=== PATIENT | female | born 1965 | race Caucasian/White ===

== ENCOUNTER 2018-12-19 08:21 | Emergency (ER) | payer OTHER ==
[2018-12-19] MEDS ORDERED: KETOROLAC TROMETHAMINE INJ 30 MG/ML VIAL IM ONE (08:52)
[2018-12-19] MEDS ORDERED: ORPHENADRINE CITRATE 30 MG/ML AMP IM ONE (08:52)
--- NOTE | 2018-12-19 08:53 | ED.PDOC ---
History of Present Illness - General Chief Complaint: Back Pain or Injury Stated Complaint: Low back pain, nausea Time Seen by Provider: 12/19/18 08:32 Source: patient Exam Limitations: no limitations - History of Present Illness Initial Comments: Sara Jones 53 y/o female stated that she had Dull back pain intermittent for the last 6 days getting worse and constant starting yesterday with radiation to left leg.Denies history of trauma.No bladder or bowel dysfunction,No weakness,no numbness,no fever,or weight loss.Stated aggravated by standing from lying position. Timing/Duration: days - 6 Quality/Severity: dullness, radiation Back Pain Location: other - left leg Method of Injury/Prior Injury: other - NO INJURIES TO BACK Improving Factors: rest Worsening Factors: movement Associated Symptoms: muscle spasms Allergies/Adverse Reactions: Allergies Codeine Allergy (Verified 12/19/18 08:49) Home Medications: Ambulatory Orders Acetaminophen W/ Codeine [Tylenol/Codeine #4 300-60 mg] 1 ea PO TID PRN #14 tab 12/19/18 Carisoprodol [Soma] 250 mg PO TID PRN #14 tab 12/19/18 Review of Systems - Review of Systems Musculoskeletal: States: see HPI, back pain All other Systems: Reviewed and Negative, No Change from Baseline Past Medical History (General) - Patient Medical History Hx Stroke: No Hx of COPD: Yes Hx Congestive Heart Failure: No Hx Hypertension: Yes Hx Diabetes: No Hx Cancer: No Surgical History: appendectomy, tonsillectomy, Hysterectomy, other - hysterectomy - Vaccination History Hx Influenza Vaccination: Yes Hx Pneumococcal Vaccination: No - Social History Hx Tobacco Use: Yes Hx Alcohol Use: Yes Hx Substance Use: No Hx Substance Use Treatment: No Hx Depression: No Hx Physical Abuse: No Hx Emotional Abuse: No Hx Suspected Abuse: No - Female History Patient is a Female of Child Bearing Age (10 -59 yrs old): Yes Patient : No - Hyst Family Medical History - Family History Mother Living Status: Hx Family Cancer: Yes - Breast-mom and sister;Colon- dad Father Living Status: Hx Family Cancer: Yes - Colon Physical Exam - Physical Exam General Appearance: Alert, Comfortable, No apparent distress Eyes, Ears, Nose, Throat Exam: normal ENT inspection Neck Exam: normal alignment, normal inspection Cardiovascular/Respiratory: regular rate, rhythm, no M/R/G, normal peripheral pulses Peripheral Pulses: radial,right: 2+, radial,left: 2+ Gastrointestinal/Abdominal: non tender, soft Back Exam: no CVA tenderness, no vertebral tenderness, muscle spasm Extremity Exam: non-tender, no pedal edema Neurologic: alert, oriented x 3, other - DTR 2 + bilaterally patellar;Positive SLR-35 o left leg Progress - Progress Progress: 12/19/18 09:00 Vital Signs - 24 hr 12/19/18 08:30 Temperature 97.1 F L Pulse Rate [L 71 finger] Respiratory 18 Rate Blood Pressure 160/83 [L arm] O2 Sat by Pulse 99 Oximetry - Results/Orders Results/Orders: 12/19/18 08:52 Lumbar Spine 5 Views [RAD] Stat Laboratory Results - last 24 hr 12/19/18 08:55 Urine Color Yellow Urine Appearance Clear Urine pH 6.5 Ur Specific [place] 1.010 Urine Protein Negative Urine Glucose (UA) Negative Urine Ketones Negative Urine Blood Negative Urine Nitrite Negative Urine Bilirubin Negative Urine Urobilinogen 0.2 Ur Leukocyte Esterase Negative Urine RBC 0 Urine WBC 0 Ur Epithelial Cells 1-3 Urine Bacteria 0 - EKG/XRAY/CT XRAY: lumbar spine degenerative disc disease Departure - Departure Clinical Impression: Muscle spasm of back Low back pain Qualifiers: Chronicity: unspecified Back pain laterality: midline Sciatica presence: with sciatica Sciatica laterality: sciatica of left side Qualified Code(s): M54.42 - Lumbago with sciatica, left side Time of Disposition: 09:54 Disposition: Discharge to Home or Self Care Condition: Fair Departure Forms: ED Discharge - Pt. Copy, Patient Portal Self Enrollment Instructions: DI for Low Back Pain, DI for Back Spasm, Degenerative Disc Disease, Osteoarthritis (DC) Prescriptions: Acetaminophen W/ Codeine [Tylenol/Codeine #4 300-60 mg] 1 ea PO TID PRN #14 tab PRN Reason: Pain Carisoprodol [Soma] 250 mg PO TID PRN #14 tab PRN Reason: Muscle Spasms Home Medications: Ambulatory Orders Acetaminophen W/ Codeine [Tylenol/Codeine #4 300-60 mg] 1 ea PO TID PRN #14 tab 12/19/18 Carisoprodol [Soma] 250 mg PO TID PRN #14 tab 12/19/18 Additional Instructions: Need to sign up with primary Md LIBRADO [phone];Return to ER as needed
--- NOTE | 2018-12-19 09:47 | RAD ---
Findings: Number of images: Five Location: Lumbar spine Five lumbar type vertebral bodies with transitional features of the left L5 vertebral body. Soft tissues are unremarkable. No acute fracture or subluxation. Vertebral body heights are maintained. Atherosclerotic plaque incidentally noted within the abdominal aorta. L4/L5: Disc space narrowing with endplate degenerative change and marginal osteophytes. Facet hypertrophy is also present. IMPRESSION: Degenerative disc disease at L4/L5. No acute fracture or subluxation. Electronically signed by: Kyree Gibbs MD 12/19/2018 9:45 AM CDT
[2018-12-19 10:19] VITALS: BP 177/95; TEMP 95.7; O2SAT 95
== END 2018-12-19 10:19 | disposition home or self-care (01) ==
LOC: ER 08:21
DX: M54.42 Lumbago with sciatica, left side (principal); M62.830 Muscle spasm of back; M51.36 Other intervertebral disc degeneration, lumbar region; J44.9 Chronic obstructive pulmonary disease, unspecified; I10 Essential (primary) hypertension; Z87.891 Personal history of nicotine dependence; Z88.5 Allergy status to narcotic agent
CPT/HCPCS: 72114; 81001; J1885; J2360

== ENCOUNTER 2019-04-12 16:06 | Emergency (ER) | payer MEDICAID, OTHER ==
[2019-04-12] MEDS ORDERED: KETOROLAC TROMETHAMINE INJ 60 MG/2 ML VIAL IM ONE (16:18)
[2019-04-12] MEDS ORDERED: DEXAMETHASONE INJ 4 MG/ML VIAL IM ONE (16:18)
--- NOTE | 2019-04-12 16:23 | ED.PDOC ---
History of Present Illness - General Time Seen by Provider: 04/12/19 16:07 Source: patient - History of Present Illness Initial Comments: 53 yo female with PMH of lumbar DDD who presents with cc of acute low back pain. Onset 2:30 am today, woke her up from sleeping, constant, sharp, 10/10 severity, largely unchanged since onset, occasional sharp/electric shooting pains down right leg, worse with lying flat, bending, walking, ROM of L-spine, no meds tried for relief. Denies any acute injuries, weakness, numbness, urinary sx's. No PCP, states they are from [place]. Pt seen here 12/2018 also for low back pain and sciatic sx's down left leg. XR L-spine revealed DDD, angelica at L4-L5 level. Allergies/Adverse Reactions: Allergies Codeine Allergy (Verified 12/19/18 08:49) Home Medications: Ambulatory Orders Acetaminophen W/ Codeine [Tylenol/Codeine #4 300-60 mg] 1 ea PO TID PRN #14 tab 12/19/18 Carisoprodol [Soma] 250 mg PO TID PRN #14 tab 12/19/18 Tramadol HCl 50 mg PO Q6H PRN 10 Days #10 tab 04/12/19 predniSONE 60 mg PO DAILY 5 Days #15 tab 04/12/19 Review of Systems - Review of Systems Review of Systems: 04/12/19 16:23 as per HPI All other Systems: Reviewed and Negative Past Medical History (General) - Patient Medical History Hx Stroke: No Hx of COPD: Yes Hx Congestive Heart Failure: No Hx Hypertension: Yes Hx Diabetes: No Hx Cancer: No - Vaccination History Hx Influenza Vaccination: Yes Hx Pneumococcal Vaccination: No - Social History Hx Tobacco Use: Yes Hx Alcohol Use: Yes Hx Substance Use: No Hx Substance Use Treatment: No Hx Depression: No Hx Physical Abuse: No Hx Emotional Abuse: No Hx Suspected Abuse: No - Female History Patient : No - Hyst Family Medical History - Family History Mother Living Status: Hx Family Cancer: Yes - Breast-mom and sister;Colon- dad Father Living Status: Hx Family Cancer: Yes - Colon Physical Exam - Physical Exam General Appearance: Alert, No apparent distress Eyes, Ears, Nose, Throat Exam: PERRL/EOMI, normal ENT inspection Neck Exam: non-tender, full range of motion, normal inspection Cardiovascular/Respiratory: regular rate, rhythm, no M/R/G, normal peripheral pulses, normal breath sounds, no respiratory distress Gastrointestinal/Abdominal: non tender, soft, no organomegaly Back Exam: normal inspection, no vertebral tenderness, decreased range of motion, other - moderate right paralumbar muscle ttp, Straight leg raise moderate positive on right, neg on Left Extremity Exam: no evidence of injury, normal range of motion, non-tender, no pedal edema Neurologic: psych nurse II-XII nml as tested, no motor/sensory deficits, alert, normal mood/affect, oriented x 3 Skin Exam: normal color, warm/dry Progress - Progress Progress: 04/12/19 16:25 Acute low back pain -suspect acute low back strain with right-sided sciatica sx's. No acute injuries/trauma reported to suggest frx. -as XR L-spine recently obtained, feel repeat not indicated at this time -will give Toradol 60 mg IM & Decadron 8 mg IM for pain 04/12/19 17:04 -Pain markedly improved. Discussed dx and trx plan - will give Rx of Prednisone 60 mg PO x5 days. Advised also ibuprofen/Tylenol and will give short course Tramadol PRN Rx for breakthrough pain. F/u closely with PCP. Tristan Goetz MD Billing #[id number] Departure - Departure Clinical Impression: Low back pain Qualifiers: Chronicity: acute Back pain laterality: midline Sciatica presence: with sciatica Sciatica laterality: sciatica of right side Qualified Code(s): M54.41 - Lumbago with sciatica, right side Time of Disposition: 17:08 Disposition: Discharge to Home or Self Care Condition: Good Departure Forms: ED Discharge - Work Release Instructions: Low Back Pain (DC) Prescriptions: predniSONE 60 mg PO DAILY 5 Days #15 tab Tramadol HCl 50 mg PO Q6H PRN 10 Days #10 tab PRN Reason: Pain Home Medications: Ambulatory Orders Acetaminophen W/ Codeine [Tylenol/Codeine #4 300-60 mg] 1 ea PO TID PRN #14 tab 12/19/18 Carisoprodol [Soma] 250 mg PO TID PRN #14 tab 12/19/18 Tramadol HCl 50 mg PO Q6H PRN 10 Days #10 tab 04/12/19 predniSONE 60 mg PO DAILY 5 Days #15 tab 04/12/19 Additional Instructions: Take ibuprofen 600 mg every 6-8 hours and Tylenol 650 mg every 6 hours as needed. Take prednisone as directed. Take Tramadol for breakthrough pain. Do not drive or operate heavy machinery when taking Tramadol. Follow up with your primary care doctor in next 1-2 weeks.
[2019-04-12 17:07] VITALS: BP 141/71
[2019-04-12 17:23] VITALS: TEMP 97.6; O2SAT 96
== END 2019-04-12 17:24 | disposition home or self-care (01) ==
LOC: ER 16:06
DX: M54.41 Lumbago with sciatica, right side (principal); M51.36 Other intervertebral disc degeneration, lumbar region; J44.9 Chronic obstructive pulmonary disease, unspecified; I10 Essential (primary) hypertension; Z87.891 Personal history of nicotine dependence; Z88.5 Allergy status to narcotic agent
CPT/HCPCS: J1100; J1885

== ENCOUNTER 2019-07-05 11:04 | Emergency (ER) | payer MEDICAID ==
[2019-07-05] MEDS ORDERED: KETOROLAC TROMETHAMINE INJ 60 MG/2 ML VIAL IM ONE (11:18)
[2019-07-05] MEDS ORDERED: DEXAMETHASONE INJ 10 MG/ML VIAL IM ONE (11:18)
--- NOTE | 2019-07-05 11:22 | ED.PDOC ---
History of Present Illness - General Time Seen by Provider: 07/05/19 11:12 Source: patient, old records Exam Limitations: no limitations - History of Present Illness Initial Comments: Pt is a 54 yo female who presents to ED for right lower back pain for 2 days. Reports h/o DDD of lumbar spine with frequent low back pain. States she was cleaning all day yesterday and last night developed pain to right lower back that occasionally goes down right leg. Has had similar back pain and radiation in the past due to sciatica. Has been seen in this ED x 2 for similar symptoms with imaging performed previously. Denies fall or trauma, incontence, weakness or paresthesias. Has not tried any medications at home for pain. Pain is worse when standing up from seated postion. Allergies/Adverse Reactions: Allergies Codeine Allergy (Verified 12/19/18 08:49) Home Medications: Ambulatory Orders Prednisone 60 mg PO DAILY 5 Days #15 tab 07/05/19 traMADol 37.5MG/APAP 325MG [Ultracet] 1 ea PO Q6H PRN #15 tab 07/05/19 Review of Systems - Review of Systems Constitutional: Denies: chills, fever, weakness EENTM: States: no symptoms reported Respiratory: Denies: cough, short of breath, wheezing Cardiology: Denies: chest pain, palpitations, syncope Gastrointestinal/Abdominal: Denies: abdominal pain, nausea, vomiting Genitourinary: Denies: dysuria, frequency, hematuria Musculoskeletal: States: back pain. Denies: neck pain Neurological: Denies: headache, paresthesia, weakness All other Systems: Reviewed and Negative Past Medical History (General) - Patient Medical History Hx Stroke: No Hx of COPD: Yes Hx Congestive Heart Failure: No Hx Hypertension: Yes Hx Diabetes: No Hx Cancer: No - Vaccination History Hx Tetanus, Diphtheria Vaccination: No Hx Influenza Vaccination: Yes Hx Pneumococcal Vaccination: No - Social History Hx Tobacco Use: Yes Hx Alcohol Use: Yes Hx Substance Use: No Hx Substance Use Treatment: No Hx Depression: No Hx Physical Abuse: No Hx Emotional Abuse: No Hx Suspected Abuse: No - Female History Patient : No - Hyst Family Medical History - Family History Mother Living Status: Hx Family Cancer: Yes - Breast-mom and sister;Colon- dad Father Living Status: Hx Family Cancer: Yes - Colon Physical Exam - Physical Exam General Appearance: Alert, No apparent distress, Other - Seated on bed in no distress Eyes, Ears, Nose, Throat Exam: PERRL/EOMI, pharynx normal Neck Exam: non-tender, full range of motion, normal inspection, other - No C, T, L spine tenderness Cardiovascular/Respiratory: regular rate, rhythm, normal peripheral pulses, normal breath sounds, no respiratory distress Peripheral Pulses: dorsalis pedis,right: 2+, dorsalis pedis,left: 2+, posterior tibialis,right: 2+, posterior tibialis,left: 2+ Gastrointestinal/Abdominal: non tender, soft, no pulsatile mass Back Exam: other - TTP right lumbar musculature Extremity Exam: no evidence of injury, normal range of motion, non-tender, no pedal edema, other - 5/5 strength in BLE Neurologic: no motor/sensory deficits, alert, normal mood/affect Skin Exam: normal color, warm/dry Progress - Progress Progress: 07/05/19 11:24 Pt has h/o DDD of lumbar spine with chronic back pain. Low back pain became worse last night after doing household cleaning yesterday. She has no neuro deficits on exam. Has had previous imaging for this showing DDD L spine. No recent trauma. I do not think repeat imaging would be of benefit at this time. She has no urinary symptoms. States steroids have helped her symptoms in the past. Will treat with Decadron and Toradol IM here and plan to treat with Prednisone taper and give small RX for Tramadol for breakthrough pain at home. Pt feels comfortable with plan of care and will f/u with PCP for recheck in 1-2 days. SRP given. - Results/Orders Results/Orders: IChart Review. I have reviewed previous ED visits on 12/19/18 and 04/12/19 for back pain including imaging and labs. Departure - Departure Clinical Impression: Low back pain Qualifiers: Chronicity: acute Back pain laterality: right Sciatica presence: with sciatica Sciatica laterality: sciatica of right side Qualified Code(s): M54.41 - Lumbago with sciatica, right side Time of Disposition: :31 Disposition: Discharge to Home or Self Care Condition: Good Diet: resume usual diet Activity: increase activity as tolerated Referrals: Niels Farley MD [Active Staff] - 1-5 Days Prescriptions: Prednisone 60 mg PO DAILY 5 Days #15 tab traMADol 37.5MG/APAP 325MG [Ultracet] 1 ea PO Q6H PRN #15 tab PRN Reason: Pain Home Medications: Ambulatory Orders Prednisone 60 mg PO DAILY 5 Days #15 tab 07/05/19 traMADol 37.5MG/APAP 325MG [Ultracet] 1 ea PO Q6H PRN #15 tab 07/05/19 Additional Instructions: You need to follow up with PCP or pain management physician within 1 week for recheck.
[2019-07-05 11:26] VITALS: TEMP 97.1; O2SAT 98
[2019-07-05 12:00] VITALS: BP 156/105
== END 2019-07-05 12:00 | disposition home or self-care (01) ==
LOC: ER 11:04
DX: M51.36 Other intervertebral disc degeneration, lumbar region (principal); J44.9 Chronic obstructive pulmonary disease, unspecified; I10 Essential (primary) hypertension; Z87.891 Personal history of nicotine dependence; Z88.5 Allergy status to narcotic agent
CPT/HCPCS: J1100; J1885

== ENCOUNTER → 2019-07-31 | Outpatient (CLI) | payer OTHER ==
--- NOTE | 2019-08-03 21:08 | CT ---
Procedure: CT LUNG SCREENING Exam Date: 07/31/2019 Ordering Provider: Darren Keane Clinical Indication: HX OF TOBACCO USE . Current cigarette smoker. 30 pack years. This patient meets eligibility criteria for low-dose CT lung cancer screening. Comparison: None. Technique: Using a multislice scanner, sequential helical axial imaging was obtained in the thorax, 2.5 mm thickness, 2.5 mm separation, from the level of the thoracic inlet through the lung bases without IV contrast. A low dose protocol was utilized for BMI less than 30: BMI: 23.7. CTDI: 1.77 mGy. 120. kVp. 45 mA. DLP 64.7 mGy-cm. 2D sagittal and coronal reconstructed images, 6.0 mm thickness, were obtained. This exam was performed according to our departmental dose optimization program which includes use of automated exposure control, adjustment of the mA and/or kV according to patient size and/or use of iterative reconstruction technique. Nodule measurements under 10 mm are given as mean value of 3 axes diameters. FINDINGS: Lungs and large airways: Bilateral parenchymal blebs with peripheral bulla abutting the pleura. More numerous in the upper lung jordan. Minimal bibasilar densities. No abnormal nodules and no masses. No focal infiltrates. Pleura and space: Focal pleural thickening abutting the right upper lobe and middle lobe. Otherwise negative. Mediastinum and deysi: evaluation limited by low dose technique and lack of IV contrast. Unremarkable. Heart and great vessels: Atherosclerotic calcifications in the thoracic aorta and right innominate artery. Chest wall, lower neck, axillae: Evaluation also limited by same factors as described above. 8mm focal asymmetry versus mass density lower inner quadrant right breast. Upper abdomen: Evaluation limited by low-dose technique. No free air or free fluid. 1.0 x 1.5 cm left adrenal enlargement with Hounsfield density ranging from -12 to +4. Representing a adenoma or cyst. Osseous structures: Evaluation limited by low dose MIP technique. Spondylosis mid thoracic spine. IMPRESSION: 1. No abnormal nodules and no mass. No focal infiltrates. Emphysematous changes more prevalent in the upper lung jordan.. [facility] Best Practice Recommendations: please see below for Lung RADS category and FOLLOW-UP.* *Lung RADS category Category 1S - No nodule or definitely benign nodules (probability of malignancy less than 1%). Follow-up: Continue annual screening with Low Dose Chest CT in 12 months. 2. Lung RADS Modifier S - Clinically Significant or Potentially Clinically Significant Findings (non lung cancer). Focal asymmetry versus mass density inferior right breast. Recommend digital diagnostic bilateral mammography at breast imaging facility where patient is currently enrolled in screening program. If not currently enrolled, recommend diagnostic digital bilateral breast tomosynthesis at this facility. Electronically signed by: Michael Blue MD 08/03/2019 9:06 PM [employer]
== END ==
LOC: CT 13:50
PROVIDERS: ATTEND Family Medicine
DX: Z87.891 Personal history of nicotine dependence (principal); J43.9 Emphysema, unspecified

== ENCOUNTER 2019-10-11 09:08 | Emergency (ER) | payer MEDICAID, OTHER ==
[2019-10-11] MEDS ORDERED: IBUPROFEN 200 MG TAB PO ONE (09:27)
--- NOTE | 2019-10-11 09:31 | ED.PDOC ---
History of Present Illness - General Chief Complaint: General Stated Complaint: Left wrist pain Time Seen by Provider: 10/11/19 09:22 Additional Information: Patient is a 54-year-old female who presents to the ED with chief complaint of left wrist and hand pain. Patient indicates she had a mechanical fall 3 weeks ago at home and landed on her outstretched hand. She has had only mild discomfort since then, however, approximately 2 days ago the pain became worse for unknown reasons. Patient denies any previous injury to the hand or wrist. Patient has no other complaints and has no other injuries from the fall. - History of Present Illness Allergies/Adverse Reactions: Allergies Codeine Allergy (Verified 12/19/18 08:49) Home Medications: Ambulatory Orders Prednisone 60 mg PO DAILY 5 Days #15 tab 07/05/19 traMADol 37.5MG/APAP 325MG [Ultracet] 1 ea PO Q6H PRN #15 tab 07/05/19 Review of Systems - Review of Systems Constitutional: Denies: chills, fever EENTM: States: no symptoms reported Respiratory: Denies: cough, short of breath Cardiology: Denies: chest pain, palpitations Genitourinary: Denies: pain Musculoskeletal: States: see HPI Skin: States: no symptoms reported Neurological: States: no symptoms reported Past Medical History (General) - Patient Medical History Hx Stroke: No Hx of COPD: Yes Hx Congestive Heart Failure: No Hx Hypertension: Yes Hx Thyroid Disease: No Hx Diabetes: No Hx Cancer: No - Vaccination History Hx Tetanus, Diphtheria Vaccination: No Hx Influenza Vaccination: Yes Hx Pneumococcal Vaccination: No - Social History Hx Tobacco Use: Yes Hx Alcohol Use: Yes Hx Substance Use: No Hx Substance Use Treatment: No Hx Depression: No Hx Physical Abuse: No Hx Emotional Abuse: No Hx Suspected Abuse: No - Female History Patient : No - Hyst Family Medical History - Family History Mother Living Status: Hx Family Cancer: Yes - Breast-mom and sister;Colon- dad Father Living Status: Hx Family Cancer: Yes - Colon Physical Exam - Physical Exam General Appearance: Alert, Comfortable, No apparent distress Neck: supple, normal inspection Wrist Exam: normal inspection Hand Exam: normal inspection - Normal inspection of the left hand and wrist. Negative edema, erythema, or abrasion. Patient with moderate tenderness to palpation over the lateral wrist at the ulnar styloid region and the proximal fifth metacarpal region. Full range of motion hand and wrist. 2+ capillary refill, 2+ radial pulse. Progress - Progress Progress: Patient feeling better at this time and her x-rays are read as unremarkable. Will give a Velcro wrist splint and patient to rest and follow-up with her PCP as needed. She will take OTC Tylenol or Motrin for any discomfort. Vital signs stable, patient is NAD and looks clinically well and I believe is safe for discharge with outpatient follow-up. Follow-up instructions, discharge instructions and return to ED precautions discussed with patient. Patient voices understanding and willingness to comply with instructions. All radiographic results have been discussed with the patient, and all questions answered. Patient is happy with plan. Departure - Departure Clinical Impression: Left wrist sprain Qualifiers: Encounter type: initial encounter Qualified Code(s): S63.502A - Unspecified sprain of left wrist, initial encounter Time of Disposition: 10:11 Disposition: Discharge to Home or Self Care Condition: Good Departure Forms: ED Discharge - Pt. Copy, Patient Portal Self Enrollment Instructions: Wrist Sprain (DC) Referrals: Niels Farley MD [Primary Care Provider] - 1-2 Weeks Home Medications: Ambulatory Orders Prednisone 60 mg PO DAILY 5 Days #15 tab 07/05/19 traMADol 37.5MG/APAP 325MG [Ultracet] 1 ea PO Q6H PRN #15 tab 07/05/19
[2019-10-11 09:34] VITALS: O2SAT 96
--- NOTE | 2019-10-11 09:57 | RAD ---
EXAM: XR Left Wrist Complete, 3 or More Views CLINICAL HISTORY: fall, pain TECHNIQUE: Frontal, lateral and oblique views of the left wrist. COMPARISON: No relevant prior studies available. FINDINGS: Bones/joints: There is moderate to severe sclerosis and narrowing of the STT joint. There is mild spurring and narrowing of the first carpometacarpal joint. No acute fracture. No dislocation. Soft tissues: Unremarkable. No radiopaque foreign body. IMPRESSION: Chronic changes as above. No acute disease. Electronically signed by: Barbara Aparicio MD 10/11/2019 9:56 AM CDT
--- NOTE | 2019-10-11 10:04 | RAD ---
: 1965. Technique: 3 views of the left hand. Clinical history: fall, pain. Findings: There is no soft tissue swelling. No evidence for acute fracture. There is severe narrowing of the lateral intercarpal joint with sclerosis. There is narrowing of the interphalangeal joints. No destructive lesion. Osteopenia. Impression: 1. No acute skeletal findings. 2. Osteopenia and arthrosis. Electronically signed by: Cristo Lou MD 10/11/2019 10:02 AM CDT
[2019-10-11 10:27] VITALS: BP 159/86; TEMP 96.8
== END 2019-10-11 10:21 | disposition home or self-care (01) ==
LOC: ER 09:08
DX: S63.502A Unspecified sprain of left wrist, initial encounter (principal); I10 Essential (primary) hypertension; J44.9 Chronic obstructive pulmonary disease, unspecified; F17.200 Nicotine dependence, unspecified, uncomplicated; W19.XXXA Unspecified fall, initial encounter; Y92.009 Unspecified place in unspecified non-institutional (private) residence as the place of occurrence of the external cause